=== PATIENT | female | born 1945 | race Caucasian/White ===

== ENCOUNTER 2019-06-14 12:47 | Emergency (ER) | payer MEDICARE, BC ==
[~2019-06-14] VITALS: Ht 157.5 cm; Wt 86.0 kg
[~2019-06-14 12:47] MED LIST: ASPI-611 PO; ATOR40TA72 PO; BUPR-94 PO; CALC300T4 PO; CARV12.5 PO; DOXY100C2 PO; DULO60CA65 PO; FURO-149 PO; LYR75C PO; PREG50CA PO
[2019-06-14] MEDS ORDERED: ondansetron/PF 4mg/2ml inj IV ONE (12:50)
[2019-06-14] MEDS ORDERED: normal saline 1000ML IV soln IVB ONE ×2 (12:50→14:00)
[2019-06-14] MEDS ORDERED: ketorolac tromethamine 15mg/ml inj. IV ONE (12:50)
[2019-06-14 13:10] LABS: BASOPHILS # (AUTO) 0.1 X10'3 (0-0.2); BASOPHILS % (AUTO) 0.6 % (0-1); EOSINOPHILS # (AUTO) 0.1 X10'3 (0-0.9); EOSINOPHILS % (AUTO) 1.5 % (0-6); HEMATOCRIT 32.4 % (35.0-45.0); LYMPHOCYTES # (AUTO) 2.4 X10'3 (1.1-4.8); LYMPHOCYTES % (AUTO) 26.9 % (21-51); MEAN CORPUSCULAR HEMOGLOBIN 31.4 PG (27.0-31.0); MEAN CORPUSCULAR HGB CONC 33.8 g/dL (33.0-36.5); MEAN CORPUSCULAR VOLUME 92.8 FL (78-98); MEAN PLATELET VOLUME 10.4 FL (7.4-10.4); MONOCYTES # (AUTO) 1.8 X10'3 (0-0.9); MONOCYTES % (AUTO) 19.8 % (2-12); NEUTROPHILS # (AUTO) 4.5 X10'3 (1.8-7.7); NEUTROPHILS % (AUTO) 51.2 % (42-75); PLATELET COUNT 168 X10'3 (140-440); RED BLOOD COUNT 3.49 X10'6 (4.20-5.60); WHITE BLOOD COUNT 8.8 X10'3 (4.5-11.0)
[2019-06-14 13:23] LABS: ALANINE AMINOTRANSFERASE 20 U/L (12-78); ALBUMIN 3.8 G/DL (3.4-5.0); ALBUMIN/GLOBULIN RATIO 1.2 (1.1-1.5); ALKALINE PHOSPHATASE 85 IU/L (46-116); ANION GAP 17 (8-16); ASPARTATE AMINO TRANSFERASE 15 U/L (10-37); BILIRUBIN,TOTAL 0.7 MG/DL (0.1-1.0); BLOOD UREA NITROGEN 25 MG/DL (7-18); BUN/CREATININE RATIO 13.4 (6.6-38.0); CALCIUM 9.4 MG/DL (8.5-10.1); CHLORIDE 108 MMOL/L (99-107); CREATININE 1.86 MG/DL (0.40-0.90); GLUCOSE 119 MG/DL (70-104); LIPASE 96 U/L (73-393); POTASSIUM 3.6 MMOL/L (3.5-5.1); SODIUM 146 MMOL/L (135-145); TOTAL CARBON DIOXIDE 21.5 MMOL/L (24-32); eGFR 27 ML/MIN
--- NOTE | 2019-06-14 13:24 | NUR ---
PT UNABLE TO VOID FOR UA AT THIS TIME.
--- NOTE | 2019-06-14 13:49 | NUR ---
PT AMBULATED WITH FWW TO BATHROOM TO VOID FOR UA, PT WAS UNABLE TO VOID.
[2019-06-14] MEDS: morphine 4 MG/ML inj SYRINge IV PRN ×2 (13:53→14:57)
[2019-06-14] MEDS ORDERED: normal saline 1000ML IV soln IV ONE (14:30)
[2019-06-14] MEDS ORDERED: proCHLORperazine 10 MG/2 ml inj IV ONE (15:40)
[2019-06-14] MEDS ORDERED: fentaNYL/PF 50MCG/1 ML 2ML syringe IV ONE (15:40)
--- NOTE | 2019-06-14 15:41 | NUR ---
PT STILL UNABLE TO VOID FOR UA, DR ACHARYA AWARE.
[2019-06-14] MEDS ORDERED: LORazepam 2 mg/ml vial IV ONE (16:35)
[2019-06-14 16:40] VITALS: BP 168/65
[2019-06-14 16:43] LABS: CLARITY,URINE SLIGHTLY CLOUDY (Clear); COLOR,URINE STRAW (Yellow); GLUCOSE, URINE NEGATIVE (Neg); KETONES,URINE NEGATIVE (Neg); LEUKOCYTE ESTERASE ,URINE SMALL (Neg); NITRITES, URINE NEGATIVE (Neg); OCCULT BLOOD,URINE SMALL (Neg); PROTEIN,URINE NEGATIVE (Neg); UROBILINOGEN,URINE 0.2 E.U/dL (0.2-1.0)
[2019-06-14 16:44] LABS: UA COLLECTION TYPE OTHER
[2019-06-14 16:48] LABS: RBC,URINE 0-2 /HPF (0-2)
[2019-06-14 16:49] LABS: BACTERIA,URINE FEW /HPF (Neg); MUCUS STRANDS MODERATE /LPF (Neg); RENAL CELLS, URINE FEW /HPF; SQUAMOUS EPITHELIAL CELL,UR MODERATE /LPF (FEW)
[2019-06-14] MEDS ORDERED: PROM12.512 PO (17:00)
[2019-06-14] MEDS ORDERED: TRAM50TA2 PO (17:00)
== END 2019-06-14 17:12 | disposition home or self-care (01) ==
LOC: ER 12:48
DX: R10.12 Left upper quadrant pain (principal); R11.10 Vomiting, unspecified; M54.5 Low back pain; I50.9 Heart failure, unspecified; E11.9 Type 2 diabetes mellitus without complications; G89.29 Other chronic pain; M79.7 Fibromyalgia; Z90.49 Acquired absence of other specified parts of digestive tract; Z98.890 Other specified postprocedural states; Z95.0 Presence of cardiac pacemaker; Z91.018 Allergy to other foods; Z91.040 Latex allergy status; Z88.0 Allergy status to penicillin; Z79.82 Long term (current) use of aspirin; Z79.899 Other long term (current) drug therapy
CPT/HCPCS: 36415; 71045; 80053; 81001; 83605; 83690; 84145; 85025; 87040; 87088; 96361; 96374; 96375; 96376; 99284; J0780; J1885; J2060; J2270; J2405; J3010; J7030

== ENCOUNTER 2021-01-24 00:57 | Emergency (ER) | payer MEDICARE, BC ==
[~2021-01-24] VITALS: Ht 154.9 cm; Wt 86.4 kg
[~2021-01-24 00:57] MED LIST changes: -DOXY100C2 PO; +PROM12.512 PO
[2021-01-24 01:29] LABS: BASOPHILS % (AUTO) 0.5 % (0-1); EOSINOPHILS # (AUTO) 0.1 X10'3 (0-0.9); EOSINOPHILS % (AUTO) 0.9 % (0-6); HEMOGLOBIN 10.8 g/dl (12.0-16.0); LYMPHOCYTES # (AUTO) 2.7 X10'3 (1.1-4.8); LYMPHOCYTES % (AUTO) 30.9 % (21-51); MEAN CORPUSCULAR HEMOGLOBIN 30.7 PG (27.0-31.0); MEAN CORPUSCULAR HGB CONC 33.6 g/dL (33.0-36.5); MEAN CORPUSCULAR VOLUME 91.6 FL (78-98); MEAN PLATELET VOLUME 9.5 FL (7.4-10.4); MONOCYTES # (AUTO) 1.9 X10'3 (0-0.9); MONOCYTES % (AUTO) 21.7 % (2-12); PLATELET COUNT 148 X10'3 (140-440); RED CELL DISTRIBUTION WIDTH 12.7 % (11.5-14.5); WHITE BLOOD COUNT 8.7 X10'3 (4.5-11.0)
[2021-01-24] MEDS ORDERED: ketorolac trometh. 30mg/ml inj. IM ONE (01:35)
[2021-01-24] MEDS ORDERED: morphine 2 MG/ML inj. syringe IV PRN (01:35)
[2021-01-24 01:42] LABS: ALANINE AMINOTRANSFERASE 39 U/L (12-78); ALBUMIN 3.5 G/DL (3.4-5.0); ALBUMIN/GLOBULIN RATIO 1.1 (1.1-1.5); ALKALINE PHOSPHATASE 100 IU/L (46-116); ANION GAP 10 (8-16); ASPARTATE AMINO TRANSFERASE 15 U/L (10-37); BILIRUBIN,TOTAL 0.3 MG/DL (0.1-1.0); BLOOD UREA NITROGEN 40 MG/DL (7-18); BUN/CREATININE RATIO 21.4 (6.6-38.0); CALCIUM 9.5 MG/DL (8.5-10.1); CHLORIDE 108 MMOL/L (99-107); CREATININE 1.87 MG/DL (0.40-0.90); GLUCOSE 164 MG/DL (70-104); POTASSIUM 4.7 MMOL/L (3.5-5.1); SODIUM 140 MMOL/L (135-145); TOTAL CARBON DIOXIDE 21.7 MMOL/L (24-32); TOTAL PROTEIN 6.6 G/DL (6.4-8.2); eGFR 26 ML/MIN
--- NOTE | 2021-01-24 02:21 | NUR ---
PT REPORTS HE DAUGHTER WILL NOT BE ABLE TO TAKE HER HOME UNTIL THE MORNING AND SHE HAS NOT OTHER RIDE HOME. PT STATES SHE DOES NOT WANT THE MOPHINE SHE HAS HAD HALLUINATIONS IN THE PAST. DR. PARISI AT BEDSIDE AND UPDATING PT OF FINDINGS AND THAT SHE WILL BE DISCHARGED. PT UNABLE TO BE GIVEN ANY NARCOTICS SHE WILL BE GOING HOME IN A TAXI TO HER HOME ALONE. PT IS AGREEABLE TO THIS PLAN AND WILL BE PERSCRIBED [facility]CO.
[2021-01-24] MEDS ORDERED: HYDR-3965 PO ×2 (02:22→02:51)
[2021-01-24] MEDS ORDERED: CELE-193 PO ×2 (02:22→02:51)
[2021-01-24 02:37] VITALS: BP 106/68
--- NOTE | 2021-01-24 02:38 | NUR ---
PT SAT UP AND REPORTS THE PAIN IS SEVERE WHEN SITTING AND THAT IT WILL BE DIFFICULT TO GO HOME WITH SUCH PAIN. STATES SHE HAS NOONE TO GET HER AT THIS HOUR. DR. SAHNI UPDATED. DR. SAHNI TALKING WITH PT ABOUT OPTIONS FOR PAIN MANAGEMENT AND THAT OUR POLICY DOES NOT ALLOW HER TO GO HOME IN A TAXI UNSUPERVISED WITH OPIATES GIVEN BY US.
[2021-01-24 02:54] LABS: ANISOCYTOSIS FEW; PLATELET ESTIMATE NORMAL; POLYCHROMASIA FEW; TOTAL CELLS COUNTED 100
[2021-01-24 02:55] LABS: LARGE PLATELETS FEW
--- NOTE | 2021-01-24 03:07 | NUR ---
PT REQUESTS HER PERSCRIPTIONS SENT TO [facility] ON [address] SO THAT HER DAUGHTER CAN EASILY PICK THEM UP AND GET THEM TO HER IN THE MORNING.
== END 2021-01-24 03:56 | disposition home or self-care (01) ==
LOC: ER 00:57
DX: S46.812A Strain of other muscles, fascia and tendons at shoulder and upper arm level, left arm, initial encounter (principal); R07.89 Other chest pain; I50.9 Heart failure, unspecified; E11.9 Type 2 diabetes mellitus without complications; G89.29 Other chronic pain; M79.7 Fibromyalgia; Z87.440 Personal history of urinary (tract) infections; Z90.49 Acquired absence of other specified parts of digestive tract; Z98.890 Other specified postprocedural states; Z95.5 Presence of coronary angioplasty implant and graft; Z79.82 Long term (current) use of aspirin; Z79.899 Other long term (current) drug therapy; Z91.018 Allergy to other foods; Z91.040 Latex allergy status; Z88.8 Allergy status to other drugs, medicaments and biological substances; X58.XXXA Exposure to other specified factors, initial encounter; Y93.89 Activity, other specified; Y92.096 Garden or yard of other non-institutional residence as the place of occurrence of the external cause; Y99.8 Other external cause status
CPT/HCPCS: 36415; 71045; 80053; 83880; 84484; 85007; 85025; 93005; 96372; 99285; J1885

== ENCOUNTER 2023-04-15 16:26 | Emergency (ER) | payer MEDICARE, BC ==
[~2023-04-15] VITALS: Ht 157.5 cm; Wt 81.8 kg
[~2023-04-15 16:26] MED LIST changes: -ASPI-611 PO; -BUPR-94 PO; +BUPR300T86 PO; -CALC300T4 PO; -CARV12.5 PO; +CARV12.549 PO; -FURO-149 PO; +FURO40TA4 PO; +LINA5TAB4 PO; +LISI10TA27 PO; -LYR75C PO; +METF-436 PO; -PREG50CA PO; -PROM12.512 PO
[2023-04-15 16:32] VITALS: BP 108/52
[2023-04-16] MEDS ORDERED: HYDR-3686 PO (16:37)
== END 2023-04-15 18:32 | disposition home or self-care (01) ==
LOC: ER 16:26
DX: S93.505A Unspecified sprain of left lesser toe(s), initial encounter (principal); I51.9 Heart disease, unspecified; G89.29 Other chronic pain; M54.9 Dorsalgia, unspecified; F32.A Depression, unspecified; X58.XXXA Exposure to other specified factors, initial encounter; Y92.89 Other specified places as the place of occurrence of the external cause; Y93.89 Activity, other specified; Y99.8 Other external cause status
CPT/HCPCS: 29515; 73630; 99283; L4360

== ENCOUNTER 2023-04-16 14:29 | Emergency (ER) | payer MEDICARE, BC ==
[~2023-04-16] VITALS: Ht 157.5 cm; Wt 72.7 kg
--- NOTE | 2023-04-16 14:41 | NUR ---
BOOT PLACED ON PT YESTERDAY.
[2023-04-16 15:08] VITALS: BP 95/74
[2023-04-16] MEDS ORDERED: HYDR-3686 PO (16:37)
== END 2023-04-16 17:26 | disposition home or self-care (01) ==
LOC: ER 14:30
DX: L29.8 Other pruritus (principal); I11.9 Hypertensive heart disease without heart failure; E11.9 Type 2 diabetes mellitus without complications; G89.29 Other chronic pain; M54.9 Dorsalgia, unspecified; Z79.899 Other long term (current) drug therapy; Z88.8 Allergy status to other drugs, medicaments and biological substances; Z91.040 Latex allergy status; Z88.0 Allergy status to penicillin; Z88.5 Allergy status to narcotic agent
CPT/HCPCS: 99284

== ENCOUNTER 2025-03-22 15:05 | Emergency (ER) | payer MEDICARE, BC ==
[~2025-03-22] VITALS: Ht 157.5 cm; Wt 106.0 kg
[~2025-03-22 15:05] MED LIST changes: +BUPR-480 PO; -BUPR300T86 PO; +VALA100031 PO
[2025-03-22 15:15] VITALS: BP 131/81; PULSE 90; TEMP 98.8; O2SAT 97
[2025-03-22 15:25] VITALS: RESP 25
--- NOTE | 2025-03-22 15:40 | RADIOLOGY REPORT ---
AP portable chest Comparison: 08/19/2020 acute CLINICAL INDICATION: CP FINDINGS: Heart size is enlarged. Pacer leads in the heart. No infiltrates or effusions IMPRESSION: 1. Cardiomegaly. No acute cardiopulmonary pathology
[2025-03-22 16:00] LABS: ALANINE AMINOTRANSFERASE 14 U/L (12-78); ALBUMIN 3.3 G/DL (3.4-5.0); ALKALINE PHOSPHATASE 100 IU/L (46-116); ANION GAP 12 (8-16); ASPARTATE AMINO TRANSFERASE 14 U/L (10-37); BILIRUBIN,TOTAL 0.4 MG/DL (0.1-1.0); BLOOD UREA NITROGEN 50 MG/DL (7-18); BUN/CREATININE RATIO 21.7 (10.0-20.0); CALCIUM 8.9 MG/DL (8.5-10.1); CHLORIDE 109 MMOL/L (99-107); D-DIMER 0.59 MG/L FEU (0-0.50); GLUCOSE 197 MG/DL (70-104); POTASSIUM 4.7 MMOL/L (3.5-5.1); SODIUM 141 MMOL/L (135-145); TOTAL CARBON DIOXIDE 19.7 MMOL/L (24-32); TOTAL PROTEIN 6.5 G/DL (6.4-8.2); eCRCL 16 ML/MIN; eGFR 21 ML/MIN
[2025-03-22 16:09] LABS: PRO BRAIN NATRIURETIC PEPTIDE 2647 PG/ML (0-450)
--- NOTE | 2025-03-22 16:33 | Physician Documentation ---
History of Present Illness ~ Chief Complaint: Shortness of Breath Stated Complaint: SOB Time Seen by MD: 15:24 Primary Medical Doctor: Dr. Robert HPI This is a very pleasant 79-year-old female who comes in for evaluation of 3 hours of shortness a breath that began suddenly without any obvious trigger, trauma provocation. The particular palliating or aggravating factors were elicited by the patient, not certain whether it is exertional positional. Does reports some chest discomfort without chest pain. No fever or chills. No cough. No concern for tobacco, alcohol or illicit substances. She does have pacemaker/defibrillator that was recently interrogated by a water supply technician. Most recent admission to our facility was for defibrillator firing excessively in error. Medication Reconciliation Allergies: Coded Allergies: banana (Verified Allergy, Intermediate, 09/18/24) Latex, Natural Rubber (Verified Allergy, Unknown, RASH, 09/18/24) Penicillins (Verified Allergy, Unknown, SWELLING, 09/18/24) oxycodone HCl (Verified Allergy, Unknown, SHARP HEADACHE, 09/18/24) Scheduled Atorvastatin Calcium (Atorvastatin Calcium), 1 TAB PO HS, (Reported) Bupropion HCl (Bupropion Xl), 1 TAB PO DAILY, (Reported) Carvedilol (Carvedilol), 1 TAB PO BID, (Reported) Duloxetine HCl (Duloxetine HCl), 1 CAP PO BID, (Reported) Furosemide (Furosemide), 1 TAB PO DAILY, (Reported) Linagliptin (Tradjenta), 1 TAB PO DAILY, (Reported) Lisinopril (Lisinopril), 1 TAB PO DAILY, (Reported) Metformin Hcl (Metformin Hcl), 1 TAB PO TID, (Reported) Valacyclovir HCl (Valacyclovir), 1 TAB PO Q8H Past Medical History Past Medical History: Headache, Congestive Heart Failure, UTI, Diabetes, Chronic Back Pain, Fibromyalgia, Depression Past Surgical History: cholecystectomy, orthopedic surgeries, pacemaker Patient History: (CAD) Coronary arteriosclerosis FATHER, Onset:60 years & older (CVA) Cerebrovascular accident MOTHER, Onset:60 years & older (DM Type 2) Diabetes mellitus type 2 FATHER, Onset:60 years & older Alcohol Use: None Drug Use: none Lives with: Alone Lives In: Home Occupation: employed Review of Systems ROS 10 point review of systems was performed and unless noted above in HPI is negative for acute process/complaint. Physical Exam Vital Signs: Temperature: 98.8, Heart Rate: 90, Respiratory Rate: 25, BP: 131/81, Pulse Oximetry: 97, Weight: 106.000 Physical Exam GENERAL: Awake, alert, oriented, GCS 15, no apparent distress, non-toxic appearing, answers questions, follows commands appropriately. HEENT: Atraumatic, normocephalic, pupils equal, extraocular muscles intact, sclerae anicteric, mucus membranes moist, oropharynx is clear, no stridor. NECK: supple, full active range of motion, trachea midline, no thyromegaly, no lymphadenopathy, no JVD. CARDIOVASCULAR: regular rate/rhythm, no murmurs/gallops/rubs, Pulses are 2+ in all extremities and symmetric. Capillary refill less than 2 seconds. PULMONARY: Nonlabored, good air movement ,no respiratory distress, speaking in full sentences, clear to auscultation bilaterally, no wheezing, no ronchi, no rales, no accessory muscle use. GASTROINTESTINAL: Soft, non-tender, non-distended, normal active bowel sounds, no organomegaly, no pulsatile masses, no CVA tenderness. NEUROLOGIC: Lucid with normal mental status. Normal facial symmetry. Moves all extremities symmetrically and with purpose. No truncal ataxia. Speech is fluid without evidence of dysarthria or aphasia, no focal deficits appreciated. MUSCULOSKELETAL: There is full range of motion of all extremities. There is no joint pain or joint swelling or joint erythema. There is no muscle pain or tenderness or swelling. EXTREMITIES: warm, well-perfused, no cyanosis, no clubbing, no edema, no acute deformities. Skin: warm, dry, no rashes or lesions, no jaundice, no petechiae orpurpura. No ecchymosis. PSYCHIATRIC: Normal affect, normal insight, normal concentration. Focused exam: [] Progress Results/Orders Results/Orders Orders - IVAN KIRKPATRICK DO Chest,Single View (03/22/25 15:30) Monitor (03/22/25 15:21) Saline Lock (03/22/25 15:21) Oxygen (03/22/25 15:21) Page Hospitalist (03/22/25 16:44) Fill Out Med Reconciliation (03/22/25 16:44) Completed Orders - IVAN KIRKPATRICK DO Chest,Single View (03/22/25 15:30) Cbc/Diff (03/22/25 15:21) PBNP (03/22/25 15:21) Electrocardiogram (03/22/25 15:21) CMP (03/22/25 15:21) Hs Troponin I W Calculations (03/22/25 15:21) D-Dimer (03/22/25 15:21) Man Diff (03/22/25 15:16) Furosemide 20mg Inj (Lasix Inj) (03/22/25 16:50) Vital Signs 03/22/25 03/22/25 15:15 15:25 Temp 98.8 Pulse 90 Resp 30 25 B/P (MAP) 131/81 Pulse Ox 97 Laboratory Tests Test 03/22/25 15:16 White Blood Count 7.9 Red Blood Count 3.42 L Hemoglobin 10.9 L Hematocrit 31.8 L Mean Corpuscular Volume 93.0 Mean Corpuscular Hemoglobin 32.0 H Mean Corpuscular Hemoglobin Concent 34.4 Red Cell Distribution Width 13.8 Platelet Count 150 Mean Platelet Volume 10.4 Neutrophils (%) (Auto) 56.1 Lymphocytes (%) (Auto) 25.2 Monocytes (%) (Auto) 17.8 H Eosinophils (%) (Auto) 0.6 Basophils (%) (Auto) 0.3 Neutrophils # (Auto) 4.4 Lymphocytes # (Auto) 2.0 Monocytes # (Auto) 1.4 H Eosinophils # (Auto) 0.0 Basophils # (Auto) 0.0 CBC Comment Differential Total Cells Counted 100 Neutrophils % (Manual) 53.0 Band Neutrophils % 2.0 Lymphocytes % (Manual) 20.0 L Monocytes % (Manual) 25.0 H Platelet Estimate Normal Red Blood Cell Morphology Perf Basophilic Stippling D-Dimer 0.59 H D-Dimer Comment Sodium Level 141 Potassium Level 4.7 Chloride Level 109 H Carbon Dioxide Level 19.7 L Anion Gap 12 Blood Urea Nitrogen 50 H Creatinine 2.30 H Estimated GFR/1.73 m2 21 BUN/Creatinine Ratio 21.7 H Glucose Level 197 H Calcium Level 8.9 Total Bilirubin 0.4 Aspartate Amino Transf (AST/SGOT) 14 Alanine Aminotransferase (ALT/SGPT) 14 Alkaline Phosphatase 100 Troponin I High Sensitivity 24 Pro-B-Type Natriuretic Peptide 2647 H Total Protein 6.5 Albumin 3.3 L Globulin 3.2 Albumin/Globulin Ratio 1.0 L Chemistry Comments EKG/XRAY/CT/US/VASC/MRI EKG : Additional Comment EKG was obtained and interpreted by myself showing paced rhythm, rate of 90, normal IN interval, narrow QRS, no QT prolongation, northwest axis. No STEMI. ST depression in one and aVL noted. Medical Decision Making Findings Facility Status: ED Holds, RME process The plan was discussed with the patient, who demonstrates clear understanding of the plan and is in agreement with the plan unless otherwise noted in the chart. All questions have been answered, all concerns were addressed unless otherwise documented. I was available throughout their ED stay for frequent reassessment and questio ns. Differential Diagnoses (considered and possible or likely): [COVID, influenza, RSV, upper respiratory infection in the top of the viruses, ACS, CHF, PE, less likely pneumothorax. Pneumonias obviously in differential diagnosis as well.] ??Differential Diagnoses (considered and unlikely, not requiring evaluation cur rently): [Mitochondrial poisoning, anemia/high-output heart failure has been considerably less likely] MDM Data Please see HPI for the following: Independent Historians and external Records Review. Historian: [Patient] Independent Historians: ?[EMS, record review] Medication Management: [Reviewed medication list] Social History and determinants: [Reviewed] Please see the body of the note for the following: Any independent interpretations of ECG, imaging studies. All vitals signs/haemodynamics, ordered tests were independently reviewed and interpreted by myself. Nursing triage complaint and vitals reviewed, additional nursing notes were reviewed as available and I agree unless otherwise noted or documented in contradiction in the chart Vital Signs: Independently reviewed Labs: Independently interpreted Imaging: Independently interpreted Old Medical Records: Independently reviewed, see HPI for relevant summary and information Pulse Oximetry: [97%] interpreted as [normal on room air] by me [Clinical Analyst: [Paced rhythm] reviewed and interpreted by me] Additionally notably showing: [Hemodynamically the patient is stable. Laboratory workup remarkable for markedly elevated BNP concerning for his rosio estive heart failure exacerbation.] Tests considered but not ordered include: [V/Q scan can be done on an inpatient basis] Social Determinants of Health Impact: Patient was evaluated in [facility] [place] to healthcare due to below par ratio of patient to medical providers. [] Comorbid Conditions Impacting Present Evaluation and Care/Treatment: [Multiple including CHF] Management Discussions with other Healthcare Providers: [Hospitalist regarding admission] Treatment and Disposition Medication Management (Given or considered): []. See EMR for details Consideration for Hospitalization/Escalation/Deescalation of Care: Admission for observation has been considered, and appears to be necessary for further evaluation including V/Q scan, and management of CHF exacerbation ?ED Course:?[No clinical deterioration] Unfortunately the patient had become despondent left against medical advice. I ?Shared decision making:?[] Code status:?FULL Please see the full Electronic Medical Record for full details of nursing documentation, medications list, other records of complete past medical history and conditions, vital signs, laboratory studies, and any radiologic study interpretations by radiologists. Portions of this note were completed using [employer] dictation software and as a result there may exist minor errors in spelling. I have reviewed elements of past family and social history and agree as included in note. Departure Disposition: 07 LEFT AGAINST MEDICAL ADVICE Impression: Primary Impression: Acute exacerbation of congestive heart failure Additional Impressions: Shortness of breath Elevated d-dimer Condition: Stable Referrals: NO PRIMARY CARE PROVIDER (PCP) Signature Scribe Signature: No scribe Attestation: This note accurately reflects clinical decisions, work performed by myself, DO KAYA Hutchinson NICHOLAS M DO March 22, 2025 16:33
[2025-03-22] MEDS ORDERED: furosemide 10 MG/1 ML 10ml inj IV ONE (16:45)
[2025-03-22] MEDS ORDERED: furosemide 20 MG/2 ML vial IV ONE (16:50)
[2025-03-22 16:55] LABS: BASOPHILS % (AUTO) 0.3 % (0-1); EOSINOPHILS % (AUTO) 0.6 % (0-6); HEMATOCRIT 31.8 % (35.0-45.0); HEMOGLOBIN 10.9 g/dl (12.0-16.0); LYMPHOCYTES % (AUTO) 25.2 % (21-51); MEAN CORPUSCULAR HGB CONC 34.4 g/dL (33.0-36.5); MEAN PLATELET VOLUME 10.4 FL (7.4-10.4); MONOCYTES # (AUTO) 1.4 X10'3 (0-0.9); MONOCYTES % (AUTO) 17.8 % (2-12); NEUTROPHILS # (AUTO) 4.4 X10'3 (1.8-7.7); NEUTROPHILS % (AUTO) 56.1 % (42-75); PLATELET COUNT 150 X10'3 (140-440); RED BLOOD COUNT 3.42 X10'6 (4.20-5.60); RED CELL DISTRIBUTION WIDTH 13.8 % (11.5-14.5); WHITE BLOOD COUNT 7.9 X10'3 (4.5-11.0)
[2025-03-22] MEDS ORDERED: acetaminophen 325mg tablet PO PRN (17:05)
[2025-03-22] MEDS ORDERED: mag hydrox/Alum hydrox/simeth 30ml oral suspension PO PRN (17:05)
[2025-03-22] MEDS ORDERED: ondansetron/PF 4mg/2ml inj IV PRN (17:05)
[2025-03-22] MEDS ORDERED: potassium Cl 20 mEq SR tablet PO PRN ×2 (17:05)
[2025-03-22] MEDS ORDERED: potassium Cl 40MEQ/1/2NS 520ml 520 ML IV PRN (17:05)
[2025-03-22] MEDS ORDERED: magnesium hydroxide 30ml (MOM) UD suspension PO PRN (17:05)
[2025-03-22] MEDS ORDERED: magnesium sulf-water 4G/100mL 100 ML IV PRN (17:05)
[2025-03-22] MEDS ORDERED: magnesium sulf-water 2g/50mL 50 ML IV PRN (17:05)
[2025-03-22 17:30] LABS: PLATELET ESTIMATE NORMAL; TOTAL CELLS COUNTED 100
[2025-03-22] MEDS ORDERED: docusate sod 100mg capsule PO SCH (20:00)
[2025-03-22] MEDS ORDERED: K and/or MAG REPLACEMENT MC SCH (20:00)
[2025-03-23] MEDS ORDERED: heparin, porcine 5000 units/ml vial SQ SCH
--- NOTE | 2025-03-23 06:41 | ELECTROCARDIOGRAPH REPORT ---
[facility] Test Date: 2025-03-22 Test Time: 15:14:30 Pat Name: JILLIAN ARAYA Department: EMERGENCY ROOM [id number] Room: Gender: F Draw End Hand: CHELSEA : 1945 Requested By: IVAN KIRKPATRICK Order Number: [id number] Reading MD: Dr. Joseph Begum Measurements Intervals Starlight Rate: 90 P: 0 OK: 79 QRS: 222 QRSD: 111 T: 123 QT: 363 QTc: 444 Interpretive Statements Atrial-sensed ventricular-paced rhythm No further analysis attempted due to paced rhythm Electronically Signed On 03-24-2025 15:44:[address] Joseph Begum Please click the below link to view image of tracing.
== END 2025-03-22 17:34 | disposition admitted as inpatient to this hospital (09) ==
LOC: ER 15:06
DX: I50.9 Heart failure, unspecified (principal); E11.9 Type 2 diabetes mellitus without complications; I25.10 Atherosclerotic heart disease of native coronary artery without angina pectoris; M79.7 Fibromyalgia; Z88.0 Allergy status to penicillin; Z88.5 Allergy status to narcotic agent; Z88.8 Allergy status to other drugs, medicaments and biological substances; Z90.49 Acquired absence of other specified parts of digestive tract; Z91.040 Latex allergy status; Z95.0 Presence of cardiac pacemaker
CPT/HCPCS: 36415; 71045; 80053; 83880; 84484; 85007; 85025; 85379; 93005; 99285